=== PATIENT | female | born 1930 | race Caucasian/White ===

== ENCOUNTER 2019-05-15 15:58 | Emergency (ER) | payer OTHER ==
[2019-05-15] MEDS: IBUPROFEN 600 MG TAB PO (16:38)
== END 2019-05-15 18:14 | disposition home or self-care (01) ==
LOC: E/R 15:58
DX: M25.512 Pain in left shoulder (principal); M25.511 Pain in right shoulder
CPT/HCPCS: 73030; 73030-50; 99284-25